=== PATIENT | female | born 1940 | race Caucasian/White ===

== ENCOUNTER 2021-01-22 09:15 | Outpatient (CLI) | payer MEDICARE, OTHER, SELFPAY ==
--- NOTE | ~2021-01-22 | DEXA_ITS ---
Bone Density Report Name: Mary Lou Youngblood Age: 80 Sex: Female Ethnicity: White Date of : 1940 Indication: osteopenia; height loss; prior fracture; cancer; Referring Provider: CELESTE, EMMA Nieto Study: Bone densitometry was performed. Exam Date: January 22, 2021 Accession number: [id number] Bone Density: Region BMD T-score Z-score Classification AP Spine (L1-L4) 0.927 -1.1 1.7 Osteopenia Femoral Neck (Left) 0.549 -2.7 -0.3 Osteoporosis Total Hip (Left) 0.764 -1.5 0.8 Osteopenia Total Hip Bilateral Avg 0.746 -1.7 0.6 Osteopenia Femoral Neck (Right) 0.579 -2.4 0.0 Osteopenia Total Hip (Right) 0.726 -1.8 0.4 Osteopenia World Health Organization criteria for BMD impression classify patients as: Normal (T-score at or above -1.0), Osteopenia (T-score between -1.0 and -2.5), or Osteoporosis (T-score at or below -2.5). 10-year Fracture Risk: FRAX not reported because: Some T-score for Spine Total or Hip Total or Femoral Neck at or below -2.5 Previous Exams: Region Exam Age BMD T-score BMD Change BMD Change Date g/cm2 vs Baseline vs Previous AP Spine(L1-L4) 01/22/2021 80 0.927 -1.1 0.082(9.7%)# 0.082(9.7%)# 05/16/2011 71 0.845 -1.8 Total Hip(Left) 01/22/2021 80 0.764 -1.5 0.015(2.0%)# 0.015(2.0%)# 05/16/2011 71 0.749 -1.6 Total Hip(Right) 01/22/2021 80 0.726 -1.8 -0.019(-2.5%)# -0.019(-2.5%)# 05/16/2011 71 0.745 -1.6 *Denotes significance at 95% confidence level, LSC for AP Spine = 0.022 g/cm2, LSC for Total Hip = 0.027 g/cm2 Clinical Information Provided by Patient: Has had a low trauma fracture Has the following medical conditions: Cancer Patient maximum height was 64.0 Menopause Age: 47 No regular weight bearing exercise Drinks caffeinated beverages Onset of menses at age 14 Number of children 3 Impression: The patient has established osteoporosis, based on the Left Femoral Neck T-score and the existence of a prior fracture. The patient has risk factors, including: previous fracture. No significant bone loss was observed. Discussion: HIGH RISK OF FRACTURE. BONE DENSITY IS UNDESIRABLY LOW AT ONE OR MORE SKELETAL SITES, CONSISTENT WITH POSTMENOPAUSAL OSTEOPOROSIS. This patient's lowest T-score, in a patient who has previously fractured, meets the World Health Organization's (WHO) criteria for severe osteoporosis. In untreated patients, the risk of osteoporotic fracture increases approximately two-fold for each 1.0 SD decrease
== END 2021-01-22 09:16 | disposition home or self-care (01) ==
PROVIDERS: PCP Internal Medicine; Visit Provider Internal Medicine
DX: Z78.0 Asymptomatic menopausal state (principal); M81.0 Age-related osteoporosis without current pathological fracture; M85.88 Other specified disorders of bone density and structure, other site; M85.852 Other specified disorders of bone density and structure, left thigh; M85.851 Other specified disorders of bone density and structure, right thigh
CPT/HCPCS: 77080

== ENCOUNTER 2021-08-08 16:39 | Emergency (ER) | payer MEDICARE, OTHER, SELFPAY ==
--- NOTE | ~2021-08-08 | CT_ITS ---
EXAMINATION: CT brain wo con, CT cervical spine wo con EXAM DATE: 08/08/2021 21:02 INDICATION: Fall, head injury. Headache. TECHNIQUE: Spiral CT of the head was performed without contrast. Axial, coronal and sagittal images were reviewed. Spiral CT of the cervical spine was performed without contrast. Axial images were rev iewed. Coronal and sagittal reformatted images were also reviewed. The dose-length product (DLP) fo r this examination was 605.33 (accession [id number]), 417.23 (accession [id number]) mGy-cm. The exposure was tailored according to patient size, and iterative reconstruction (ASIR) was used as additional dose reduction technique. There is no prior study for comparison. FINDINGS: HEAD CT: There is no acute intraparenchymal hemorrhage. No evidence of intraparenchymal brain mass l esion. No evidence of acute infarction. There is mild to moderate periventricular and subcortical hy podensity, nonspecific but probably related to small vessel ischemic disease. There is moderate pro minence of the sulci and ventricles related to cerebral atrophy. There is no mass effect or midlin e shift. There is no obstructive hydrocephalus suspected. There are no extra-axial collections. The re are no acute calvarial fractures. The orbits are unremarkable. Probable left frontal scalp contu reva, laceration. The visualized sinuses and mastoid air cells are well aerated. CERVICAL CT: Osseous fusion of the C5-7 vertebral bodies and partially fused facet joints. There is m oderate to severe disc disease at C4-5, moderate at C3-4. There is no evidence of acute cervical frac ture. The odontoid process is intact. Pre-dens space is normal. Prevertebral soft tissue is normal . There are no soft tissue abnormalities identified. There is no disc space widening or traumatic v ertebral body subluxation suspected. A detailed level by level evaluation of spondylosis can be adde d as addendum if requested. IMPRESSION: 1. No acute intracranial findings or cervical fracture. 2. Probable left frontal scalp contusion, laceration. 3. Age-related intracranial findings. 4. Cervical spondylosis. Reviewed, dictated and finalized at location A. R BUSINESS DEVELOPER IMPRESSION: 1. No acute intracranial findings or cervical fracture. 2. Probable left frontal scalp contusion, laceration. 3. Age-related intracranial findings. 4. Cervical spondylosis.
[2021-08-08 16:40] VITALS: BP 172/89; PULSE 84; RESP 18; TEMP 36.2; O2SAT 100
--- NOTE | 2021-08-08 19:19 | PC.NURSE ---
Assumed care of pt at this time. Pt alert and upright on stretcher. Pt and family updated on POC.
[2021-08-08 20:21] VITALS: BP 190/95; PULSE 68; RESP 25; TEMP 36.2; O2SAT 100
--- NOTE | 2021-08-08 20:47 | PC.NURSE ---
Pt to Ct via stretcher at this time. Pt alert and upright on stretcher during transport out of ED.
[2021-08-08 21:04] VITALS: BP 178/105
--- NOTE | 2021-08-08 21:50 | ED.FALL ---
HPI - Fall General Chief Complaint: Fall Stated Complaint: fall Time Seen by Provider: 08/08/21 18:28 Source: patient and family Mode of arrival: ambulatory Limitations: no limitations History of Present Illness HPI Narrative: 81-year-old female Here because of a fall with a scalp laceration Patient was walking from her garage into the kitchen like she is done 100s of times before and stumbled over the threshold and fell striking the left frontal area of her scalp She has a small laceration There were no antecedent symptoms She does not have a headache or any neurologic symptoms, she did not lose consciousness, she is not complaining of neck pain, and she is not taking a blood thinner, however she is 81 years old She believes that her tetanus is up-to-date and would rather check with her primary care doctor on this versus getting a Boostrix while she is here Related Data Allergies Allergy/AdvReac Type Severity Reaction Status Date / Time naproxen Allergy Mild Hives / Verified 08/08/21 18:45 Red Face Review of Systems Review of Systems: All systems reviewed & are unremarkable except as noted in HPI and below Constitutional: Constitutional: Reports no additional constitutional complaints, Denies chills, Denies fever(s) and Denies headache(s) Eyes: Eyes: Reports no additional eye complaints and Denies change in vision ENT: Denies headache(s) Cardiovascular: Cardiovascular: Denies chest pain, Denies radiating jaw, neck or arm pain and Denies dyspnea Respiratory: Respiratory: Denies cough and Denies dyspnea Gastrointestinal: Gastrointestinal: Denies nausea and Denies vomiting Genitourinary: Genitourinary: Denies urinary frequency Musculoskeletal: Musculoskeletal: Reports back pain, Reports myalgias, Denies deformity, Denies arthralgias, Denies joint swelling and Denies numbness Integumentary/Breasts: Skin/Breast: Denies rash and Denies wounds Neurologic: Denies vertigo, Denies dizziness, Denies syncope, Denies headache(s), Denies focal weakness and Denies numbness Psychiatric: Psychiatric: Reports no additional psychiatric complaints Endocrine: Endocrine: Reports no additional endocrine complaints Hematologic/Lymphatic: Hematologic/Lymphatic: Reports no additional hematologic/lymphatic complaints Allergic/Immunologic: Allergic/Immunologic: Reports no additional allergic/immunologic complaints Exam Const: General: no acute distress and alert Orientation/consciousness: patient oriented x3 HENMT: Head: hematoma and laceration Other: 2 cm lack to subcu left frontal scalp Eyes: Pupils: Equal, round and reactive pupils present Neck: Other: Nontender Resp: Auscultation: clear to auscultation bilaterally Cardio: Rate: regular rate Rhythm: regular rhythm Skin: General skin exam: normal color Neuro: General: patient oriented x3, moves all extremities and no focal motor deficits Speech: normal speech Gait exam (Neuro): Normal gait present Course Course Emergency Course: CT is negative Laceration glued She wants to follow-up with her primary on the tetanus and blood pressure Vital Signs Vital signs: Vital Signs Temperature 36.2 C L 08/08/21 16:40 Pulse Rate 84 08/08/21 16:40 Respiratory Rate 18 08/08/21 16:40 Blood Pressure 172/89 H 08/08/21 16:40 Pulse Oximetry 100 08/08/21 16:40 Temperature 36.2 C L 08/08/21 20:21 Pulse Rate 68 08/08/21 20:21 Respiratory Rate 25 H 08/08/21 20:21 Blood Pressure 178/105 H 08/08/21 21:04 Pulse Oximetry 100 08/08/21 20:21 Procedures Laceration Laceration 1: Date: 08/08/21 Time: 21:30 Site: scalp Size (cm): 2 Description: linear Depth: simple, single layer Pre-repair: irrigated ====== Skin Level ====== Skin layer closed with: dermabond ====== Subcutaneous Layer ====== ====== Muscle Layer ====== ====== Tendon Layer ====== MDM - Fall
[2021-08-08 22:15] VITALS: BP 126/65; PULSE 70; RESP 18; O2SAT 100
== END 2021-08-08 22:15 | disposition home or self-care (01) ==
PROVIDERS: Emergency Provider Emergency Medicine; PCP Internal Medicine
DX: S01.01XA Laceration without foreign body of scalp, initial encounter (principal); I10 Essential (primary) hypertension; W01.0XXA Fall on same level from slipping, tripping and stumbling without subsequent striking against object, initial encounter
CPT/HCPCS: 12001; 70450; 72125; 99284

== ENCOUNTER 2025-04-14 15:19 | Emergency (ER) | payer MEDICARE, SELFPAY ==
--- NOTE | ~2025-04-14 | CT_ITS ---
EXAMINATION: CT brain wo con DATE: 04/14/2025 16:26 INDICATION: trauma . TECHNIQUE: Computed tomography (CT) of the head was performed without intravenous contrast. The mA wa s adjusted according to patient size. Iterative reconstruction technique was employed. The dose-lengt h product was 605.33 mGy-cm. COMPARISON: 08/08/2021. FINDINGS: No acute intracranial hemorrhage or extra-axial fluid collection. No hydrocephalus, mass, or herniation. No acute ischemic infarct. Unremarkable dural venous sinus attenuation. No acute osseous abnormality. The aerated spaces are clear. Moderate atrophy and chronic white matter change. Atherosclerotic intracranial calcification. Bilater al lens replacements. Bilateral basal ganglia calcification. IMPRESSION: No acute intracranial process. Reviewed, dictated and finalized at location K.
--- NOTE | ~2025-04-14 | XR_ITS ---
EXAMINATION: XR chest 1V portable Exam Date/Time: 04/14/2025 18:47 CDT HISTORY: SOB Comparison: 06/14/2018; CTPA cervical spine 04/14/2025. RESULT: Lines, tubes, and devices: None. Lungs and pleura: No focal consolidation, pleural effusion, or pneumothorax. 1.2 cm ovoid opacity ov er the medial right upper lung, in comparison to the prior CT C-spine, this likely represents summati on artifact and tortuous vessels. Cardiomediastinal silhouette: Stable. Other: No acute osseous or upper abdominal finding. IMPRESSION: No acute cardiopulmonary process. Reviewed, dictated and finalized at location K.
--- NOTE | ~2025-04-14 | CT_ITS ---
EXAMINATION: CT facial & cervical spine wo DATE: 04/14/2025 16:26 INDICATION: trauma TECHNIQUE: Computed tomography (CT) of the maxillofacial region and cervical spine was performed with out intravenous contrast. Automated exposure control and iterative reconstruction technique were empl oyed. The dose-length product was 513.87 mGy-cm. COMPARISON: None FINDINGS: CERVICAL: Vertebral Body Alignment: Intact. Craniocervical and atlantoaxial alignment: Moderate degenerative change. Alignment intact. Osseous structures/fracture: No evidence of a lytic or blastic process in the visualized spine. No e vidence of acute fracture. C4-C7 vertebral body fusions. Multilevel facet fusions. Cervical soft tissues: The paraspinal soft tissues planes are maintained. 1.9 cm right thyroid nodule . Motion artifact and septal thickening in the upper lungs. Atherosclerotic arch calcifications. Degenerative changes: Degenerative changes, without severe neural foraminal or central canal narrowin g. FACE: Soft Tissues: No significant superficial soft tissue swelling. Facial bones: No acute fracture. No lytic or blastic process. Eyes: The globes are intact. The soft tissue planes of the orbits are maintained. Paranasal Sinuses: The visualized aerated spaces are clear. Foreign Bodies: No radiopaque foreign bodies. Other Findings: Uncomplicated appearing mandibular dental implants. IMPRESSION: No acute fracture or traumatic malalignment in the cervical spine. No acute facial bone fracture. 1.9 cm right thyroid nodule, consider outpatient thyroid ultrasound depending on comorbidities and pa tient wishes. Mild interstitial pulmonary edema. Reviewed, dictated and finalized at location K. IMPRESSION: No acute fracture or traumatic malalignment in the cervical spine. No acute fac ial bone fracture. 1.9 cm right thyroid nodule, consider outpatient thyroid ultrasound depending o n comorbidities and patient wishes. Mild interstitial pulmonary edema.
[2025-04-14 15:46] VITALS: BP 124/37; PULSE 81; RESP 33; TEMP 39.3; O2SAT 94
--- NOTE | 2025-04-14 15:52 | PC.NURSE ---
pt core temperature per rectal thermometer- 102.8. icepacks put in place in groin, axillary, and under breasts
[2025-04-14 16:55] LABS: Hematocrit 31.4 % (37.0-47.0); Hemoglobin 10.1 g/dL (12.0-15.0); Immature Granulocyte Percent A 1.1 % (0-0.5); Lymphocytes Absolute Auto 0.88 K/mm3 (0.9-3.2); Mean Corpuscular HGB Conc 32.2 g/dl (32-36); Mean Corpuscular Hemoglobin 28.4 pg (26-34); Mean Corpuscular Volume 88.2 fl (80-100); Nucleated Red Blood Cells Absolute Auto 0.020 K/mm3 (0.0-0.012); Nucleated Red Blood Cells Perc 0.2 % (0.0-0.2); Platelet Count Result 290 k/mm3 (150-375); Red Blood Count 3.56 M/mm3 (4.2-5.4); White Blood Count 9.4 K/mm3 (4.5-10.0)
[2025-04-14 17:14] LABS: INR 1.3; Prothrombin Time 15.8 Seconds (11.1-14.7)
[2025-04-14 17:15] LABS: Partial Thromboplastin Time 39.0 Seconds (22.3-36.8)
[2025-04-14 17:20] LABS: Alanine Aminotransferase 24 U/L (6-35); Albumin Level 3.3 g/dL (3.5-5.1); Alkaline Phosphatase 107 U/L (38-126); Anion Gap 9 mmol/L (4-12); Aspartate Amino Transferase 27 U/L (14-36); Bilirubin,Total 0.5 mg/dL (0.2-1.3); Blood Urea Nitrogen 53 mg/dL (7-17); Calcium 8.2 mg/dL (8.4-10.2); Carbon Dioxide 17 mmol/L (22-30); Chloride 111 mmol/L (98-107); Creatine Kinase 33 U/L (30-135); Estimated Glomerular Filt Rate 21; Glucose 122 mg/dL (65-110); Lipase 50 U/L (23-300); Potassium 5.0 mmol/L (3.4-5.0); Sodium 137 mmol/L (137-145); Total Protein 6.2 g/dL (6.3-8.2)
[2025-04-14] MEDS: ACETAMINOPHEN 500 MG TABLET 1000 MG PO (17:41)
--- NOTE | 2025-04-14 17:41 | PC.NURSE ---
C- Collar removed at this time per verbal order from Dr. Fuller post CT scan. Patient declined straight cath and is currently in bathroom with hat to provide a urine sample. Patient ambulated appropriately with a steady gait
--- NOTE | 2025-04-14 17:41 | ED.GENADULT ---
HPI - General Adult General Chief complaint: Fall Stated complaint: fall Time Seen by Provider: 04/14/25 15:54 History of Present Illness HPI narrative: 85-year-old female presenting to the emergency department for evaluation for having a ground level fall while she was in the urine. Patient reports she had been out doing some weeding in the ER for approximately 1 hour when she had a fall. Patient is currently on antibiotics for urinary tract infection. Patient is unsure what caused the fall. Patient was having some neck pain. Patient denies any other pain or injury. At time of evaluation patient was alert and appropriate. Related Data Allergies Allergy/AdvReac Type Severity Reaction Status Date / Time naproxen Allergy Mild Hives / Verified 08/08/21 18:45 Red Face Review of Systems Review of Systems: All systems reviewed & are unremarkable except as noted in HPI and below Exam Narrative: APPEARANCE: Well appearing, no pain, no distress, well-nourished. HEAD: normocephalic, atraumatic. EYES: PERRLA/EOMI, conjunctivae clear. NOSE: Normal no drainage EARS:TMS clear with good light reflex. THROAT: Pharynx clear, no exudate. NECK: Supple. No adenopathy, no masses. RESPIRATORY: Airway patent, respirations nonlabored. Clear to auscultation bilaterally, no rales, rhonchi, wheezing. CARDIOVASCULAR: Regular rate and rhythm without murmurs rubs or gallops. ABDOMINAL: Soft, nontender, nondistended, normal bowel sounds MUSCULOSKELETAL: Moves all extremities. Strength/ROM intact, No edema, No calf tenderness. NEURO: Alert. Cranial nerves II through XII intact. Good gait. Good coordination SKIN: Warm, dry. Normal Color Course Vital Signs Vital signs: Vital Signs Temperature 102.8 F H 04/14/25 15:46 Pulse Rate 81 04/14/25 15:46 Respiratory Rate 33 H 04/14/25 15:46 Blood Pressure 124/37 L 04/14/25 15:46 Pulse Oximetry 94 04/14/25 15:46 Oxygen Delivery Nasal Cannula 04/14/25 15:46 Oxygen Flow Rate 5 04/14/25 15:46 Temperature 97.4 F L 04/14/25 21:15 Pulse Rate 85 04/14/25 21:15 Respiratory Rate 20 04/14/25 21:15 Blood Pressure 110/68 04/14/25 21:15 Pulse Oximetry 96 04/14/25 21:15 Oxygen Delivery Nasal Cannula 04/14/25 15:46 Oxygen Flow Rate 5 04/14/25 15:46 Medical Decision Making MDM Narrative Medical decision making narrative: 85-year-old female presents emergency department for evaluation after having a ground level fall while weeding. Patient states that she had been waiting for approximately 1 hour and became fatigued. Patient did have a significant urinary tract infection and patient was treated with IV antibiotics. Patient had negative head cervical spine and facial CT. Had a lengthy discussion with the patient on whether she felt she was strong enough to go home and patient will be staying with family members overnight. Patient family were all comfortable the plan for pain discharged home. All questions concerns were addressed. Patient family were educated on reasons to return to the emergency department. Differential Diagnosis Differential Diagnosis: Subdural hematoma, subarachnoid hemorrhage, cervical spine fracture, facial fracture, COVID, RSV influenza, UTI, pyelonephritis Vital Signs Vital Signs: Vital Signs Temperature 102.8 F H 04/14/25 15:46 Pulse Rate 81 04/14/25 15:46 Respiratory Rate 33 H 04/14/25 15:46 Blood Pressure 124/37 L 04/14/25 15:46 Pulse Oximetry 94 04/14/25 15:46 Oxygen Delivery Nasal Cannula 04/14/25 15:46 Oxygen Flow Rate 5 04/14/25 15:46 Temperature 97.4 F L 04/14/25 21:15 Pulse Rate 85 04/14/25 21:15 Respiratory Rate 20 04/14/25 21:15 Blood Pressure 110/68 04/14/25 21:15 Pulse Oximetry 96 04/14/25 21:15 Oxygen Delivery Nasal Cannula 04/14/25 15:46 Oxygen Flow Rate 5 04/14/25 15:46 Lab Data Lab results reviewed: Yes I reviewed the patient's lab results. 04/14/25 16:46 04/14/25 16:46 Labs: Lab Results 04/14/25 04/14/25 Range/Units 16:46 20:18 WBC 9.4 (4.5-10.0) K/mm3 RBC 3.56 L (4.2-5.4) M/mm3 Hgb 10.1 L (12.0-15.0) g/dL Hct 31.4 L (37.0-47.0) % MCV 88.2 (80-100) fl MCH 28.4 (26-34) pg MCHC 32.2 (32-36) g/dl RDW 15.9 H (11.5-14.5) % Plt Count 290 (150-375) k/mm3 MPV 9.8 (7.4-10.4) fl Immature Gran % (Auto) 1.1 H (0-0.5) % Neut % (Auto) 79.1 H (45.5-73.1) % Lymph % (Auto) 9.3 L (18.3-44.2) % [place]once % (Auto) 6.2 (2.6-8.5) % Eos % (Auto) 3.9 (0-4.4) % Baso % (Auto) 0.4 (0.2-1.2) % Lymph # (Auto) 0.88 L (0.9-3.2) K/mm3 [place] # (Auto) 0.6 (0.1-0.6) K/mm3 Eos # (Auto) 0.4 H (0-0.3) K/mm3 Baso # (Auto) 0.0 (0.0-0.1) K/mm3 Abs Immat Gran (auto) 0.10 H (0.00-0.031) K/mm3 Absolute Neuts (auto) 7.5 H (1.3-6.7) K/mm3 Absolute Nucleated RBC 0.020 H (0.0-0.012) K/mm3 Nucleated RBC % 0.2 (0.0-0.2) % PT 15.8 H (11.1-14.7) Seconds INR 1.3 APTT 39.0 H (22.3-36.8) Seconds Sodium 137 (137-145) mmol/L Potassium 5.0 (3.4-5.0) mmol/L Chloride 111 H (98-107) mmol/L Carbon Dioxide 17 L (22-30) mmol/L Anion Gap 9 (4-12) mmol/L BUN 53 H (7-17) mg/dL Creatinine 2.22 H (0.7-1.0) mg/dL Estim Creat Clear Calc Not Reportable Estimated GFR 21 L (59 - ) Glucose 122 H (65-110) mg/dL Lactic Acid 1.2 (0.7-2.0) mmol/L Calcium 8.2 L (8.4-10.2) mg/dL Total Bilirubin 0.5 (0.2-1.3) mg/dL AST 27 (14-36) U/L ALT 24 (6-35) U/L Alkaline Phosphatase 107 (38-126) U/L Total Creatine Kinase 33 (30-135) U/L Total Protein 6.2 L (6.3-8.2) g/dL Albumin 3.3 L (3.5-5.1) g/dL Lipase 50 (23-300) U/L Urine Color Dark yellow (Yellow) Urine Appearance Turbid H (Clear) Urine pH 5.5 (5.0-9.0) Ur Specific [place] 1.021 (1.001-1.035) Urine Protein 1+ H (Negative) mg/dL Urine Glucose (UA) Negative (Negative) mg/dL Urine Ketones Trace H (Negative) mg/dL Ur Blood (Man) Negative (Negative) Urine Nitrate Negative (Negative) Urine Bilirubin Negative (Negative) Urine Urobilinogen 0.2 (<2.0) mg/dL Leukocyte Esterase Rfl 2+ H (Negative) LUIS/UL Urine RBC 0-2 (0-2) /hpf Urine WBC 51-100 H (0-3) /hpf Ur Squamous Epith Cells Few (Few) /hpf Uric Acid Crystals Present H (None) /hpf Urine Bacteria None seen /hpf Urine Casts 11-20 Imaging Data Radiologist's impression: Impressions Chest X-Ray 04/14/25 19:05 IMPRESSION: No acute cardiopulmonary process. Discharge Plan Discharge Clinical Impression: Acute UTI Patient Disposition: Home Condition: Stable Instructions: Antibiotic Form, Urinary Tract Infection in Older Adults (ED) Additional Instructions: Antibiotics as directed until completed. Drink plenty of fluids. Rest over the next few days and avoid exposure to excessive heat. If you have any worsening symptoms then please call or return to the emergency department Patient Language: Marshallese Prescriptions: New cephalexin 500 mg capsule 500 mg PO Q8H 7 Days Qty: 21 0RF Follow-up/Referrals: South,Matt Nieto MD [Primary Care Provider] -
--- OUTSIDE RECORDS SUMMARY | 2025-04-14 18:06 | XMS_ITS | Encounter Summary ---
Author Organization [facility] Address [address] [place] [address] Care Team Providers Care Sewer Builder Name Role Phone Matt Dia MD Primary Care Provider [phone] Matt Dia MD Unavailable [phone] Encounter Details Date Type Department Care Team (Latest Contact Info) Description 05/27/2018 Abstract [facility] Saul Mckinney MD Social History Tobacco Use Types Packs/Day Years Used Date Smoking Tobacco: Never Assessed Comments Unknown Sex and Gender Information Value Date Recorded Sex Assigned at Female 10/13/2018 8:23 AM ALL TERRAIN VEHICLE TECHNICIAN Legal Sex Female 5:55 PM CDT Gender Identity Female 10/13/2018 8:23 AM ALL TERRAIN VEHICLE TECHNICIAN Sexual Orientation Straight 10/13/2018 8: 23 AM ALL TERRAIN VEHICLE TECHNICIAN documented as of this encounter Plan of Treatment Upcoming Encounters Date Type Department Care Team (Late st Contact Info) Description 10/09/2025 9:40 AM ALL TERRAIN VEHICLE TECHNICIAN Office Visit [facility] Family & Internal Medicine [id number] [place] [address] Matt Dia MD [facility] [place] [address] documented as of this encounter Visit Diagnoses Not on filedocumented in this encounter Care Teams Sewer Builder Relationship Specialty Start Date End Date Matt Dia MD [address] [place] [address] PCP - General 01/02/17 Matt Dia MD [address] [place] [id number] PCP - [facility] Attributed Provider 06/28/17 09/27/21 documented as of this encounter
--- OUTSIDE RECORDS SUMMARY | 2025-04-14 18:06 | XMS_ITS | Encounter Summary ---
Author Organization [facility] Address [address] [place] [id number] Care Team Providers Care Finish Repair Worker Name Role Phone Matt Dia MD Primary Care Provider [phone] Matt Dia MD Unavailable [phone] Encounter Details Date Type Department Care Team (Latest Contact Info) Description 08/03/2018 Abstract [facility] Saul Mckinney MD Social History Tobacco Use Types Packs/Day Years Used Date Smoking Tobacco: Never Assessed Comments Unknown Sex and Gender Information Value Date Recorded Sex Assigned at Female 10/13/2018 8:23 AM DIGITAL COMPOSER Legal Sex Female 5:55 PM CDT Gender Identity Female 10/13/2018 8:23 AM DIGITAL COMPOSER Sexual Orientation Straight 10/13/2018 8: 23 AM DIGITAL COMPOSER documented as of this encounter Plan of Treatment Upcoming Encounters Date Type Department Care Team (Late st Contact Info) Description 10/09/2025 9:40 AM DIGITAL COMPOSER Office Visit [facility] Family & Internal Medicine [id number] [place] [address] [facility] [place] [address] documented as of this encounter Visit Diagnoses Not on filedocumented in this encounter Care Teams Finish Repair Worker Relationship Specialty Start Date End Date Matt Dia MD [address] [place] [address] PCP - General 01/02/17 Matt Dia MD [address] [place] [address] PCP - [facility] Attributed Provider 06/28/17 09/27/21 documented as of this encounter
--- OUTSIDE RECORDS SUMMARY | 2025-04-14 18:06 | XMS_ITS | Clinical Summary ---
Author Organization [facility] Address [address] [place] [address] Care Team Providers Care Unit Tender Name Role Phone Matt Dia MD Primary Care Provider [phone] Allergies Active Allergy Reactions Criticality Noted Date Comments Naproxen Hives 05/17/2015 Pregabalin Dizziness 12/10/2016 Medications furosemide (LASIX) 20 MG tabletIndications: Benign essential hypertension take 1 tablet by mouth daily 90 tablet 3 01/18/20 24 Active traMADol (ULTRAM) 50 MG tabletIndications: Acute Pain < 7 Day Supply,Chronic Pain Indications: Acute Pain < 7 Day Supply, Chronic Pain Take one tablet by mouth every 6-8 hours as needed for pain. 60 tablet 02/03/20 24 Active amLODIPine (NORVASC) 2.5 MG tabletIndications: Benign essential hypertension take 1 tablet by mouth daily 90 tablet 3 05/09/20 24 Active allopurinol (ZYLOPRIM) 300 MG tabletIndications: Benign essential hypertension TAKE 1 TABLET BY MOUTH DAILY 90 tablet 3 08/08/20 24 Active metFORMIN (GLUCOPHAGE) 500 MG tabletIndications: Type 2 diabetes mellitus without complication, without long-term current use of insulin ([facility]) TAKE 1 TABLET BY MOUTH TWICE DAILY WITH MEALS 180 tablet 3 08/11/20 24 Active omeprazole (PRILOSEC) 40 MG capsuleIndications :Gastroesophageal reflux disease TAKE 1 CAPSULE BY MOUTH DAILY 90 capsule 3 08/23/20 24 Active losartan (COZAAR) 100 MG tabletIndications: Benign essential hypertension TAKE 1 TABLET BY MOUTH DAILY 90 tablet 3 10/17/19 25 Active atorvastatin (LIPITOR) 10 MG tabletIndications: Mixed hyperlipidemia TAKE 1 TABLET BY MOUTH AT NIGHT AT BEDTIME 90 tablet 01/21/20 25 Active metoprolol succinate ER (TOPROL-XL) 200 MG 24 hr tabletIndications: Benign essential hypertension TAKE 1 TABLET BY MOUTH DAILY 90 tablet 03/02/20 25 Active triamcinolone (KENALOG) 0.1 % cream Apply topically daily as needed (rash on B/L legs). 03/10/20 25 Active triamcinolone (KENALOG) 0.1 % creamIndications:E czema, unspecified type Apply topically 2 (two) times daily. 80 g 3 04/05/20 25 Active sulfamethoxazole-t rimethoprim (BACTRIM DS) 800-160 MG tabletIndications: Dysuria Take 1 tablet by mouth 2 (two) times daily for 7 days. 14 tablet 04/10/20 25 025 Active azithromycin (ZITHROMAX) 250 MG tabletIndications: Upper respiratory tract infection, unspecified type Take 2 tabs daily for one day, then take 1 tab daily 6 tablet 11/30/19 25 025 Discontinu ed(Therapy completed) fluconazole (DIFLUCAN) 150 MG tabletIndications: Vaginal yeast infection Take 1 tablet (150 mg total) by mouth once for 1 dose. 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) 03/24 Type I CRPS (complex regional pain syndrome) Unsteady gait 05/22/2016 Hypertension associated with type 2 diabetes mellitus ([facility]) 05/17/2015 Gastroesophageal reflux disease 05/17/2015 Gout 05/17/2015 Hyperlipidemia due to type 2 diabetes mellitus ([facility]) 05/17/2015 Osteoarthritis of knee 05/17/2015 Resolved Problems Problem Noted Date Diagnosed Date Resolved Date Chronic kidney disease, stage III (moderate) 07/15/2023 Hypertension 01/13/2022 01/13/2022 Metatarsal fracture 04/27/2018 09/12/20 Serum creatinine raised 10/02/201606/28 Encounters Date Type Department Care Team Description 04/10/2025 Telephone [facility] Family Internal [address] [address] Matt Dia MD Medication Request 04/10/2025 MyChart Message Enc [facility] Internal [address] [address] Matt Dia MD uti 04/08/2025 Telephone [facility] Internal [address] [address] Matt Dia MD Advice (Nurse Triage - After Hours ([id number])/) 04/05/2025 8:00 AM CDT Office Visit [facility] Internal [address] [address] Matt Dia MD Follow Up; GERD; Peripheral Vascular Disease; Diabetes; CHF; Obstructive Sleep Apnea ; Hypertension; Hyperlipidemia; Chronic Kidney Disease; Other (CRPS & back pain - prescribed Tramadol); Vaginal Problem (Patient c/o of vaginal yeast infection x 2 weeks. She is requesting medication to tx. ); Itching (Patient c/o RT hand itching. ) 04/05/2025 Travel 04/02/2025 Results Follow-Up [facility] Family & Internal Medicine [address] [address] Matt Dia MD URINALYSIS, CK (CPK), ALBUMIN URINE RANDOM W/CREATININE, Additional followed-up results: 6 2025 8:20 AM CDT Laboratory Only [facility] Family Internal [address] [address] Matt Dia MD 2025 - 2025 11:59 PM CDT Hospital Encounter [facility] [place] [address] Matt Dia MD Discharge Disposition: Home or Self Care (Routine Discharge) 2025 Travel from Last 3 Months Immunizations Immunization Administration Dates Next Due Arexvy Respiratory Syncytial Virus (RSV, adjuvanted) 0.5 mL, PF 04/14/2024 Fluzone High Dose (IIV, triv alent, 0.5mL) 08/10/2024 Fluzone High Dose - >Age 65 (Prefilled Syringe) 07/15/2023,07/15/2022,07/15/2021,2019 Influenza (Generic) 07/12/2015 Influenza Adult (Generic) 07/15/2022,,06/20/2019,2017,06/21/2016 MODERNA COVID-19 (12+) MRNA, LNP-S, PF, 100 MCG/ 0.5 ML DOSE 11/22/2020,10/25/2020 MODERNA COVID-19 (PSYCHOLOGY TECHNICIAN GAGAN GEORGE), MRNA, LNP-S, PF, 50 MCG/ 0.25 ML DOSE 08/15/2021 Pneumococcal (Pneumovax 23) 09/12/2019 Pneumococcal (Prevnar 13) 03/12/2017 Tdap (Boostrix) 09/08/2017 Zoster (Zostavax) [address] Unt/0.65Ml 08/11/2016 Family History Medical History Relation Comments Parkinson's Disease Brother Diabetes Father Kidney Cancer Father Parkinson's Disease Father Parkinson's Disease Mother Arthritis Sister Asthma Sister COPD Sister Heart Disease Sister Hypertension Sister Stroke Sister Relation Status Comments Brother Father Mother Sister Social History Tobacco Use Types Packs/Day Years Used Date Smoking Tobacco: Former Cigarettes 0.5 32 0 09/28/1957 - 09/28/1989 Smokeless Tobacco: Never Tobacco Cessation:Counseling Given: Yes Comments:na Alcohol Use Standard Drinks/Week Comments Not Currently 1.7 (1 standard drin k = 0.6 oz pure alcohol) 1 glass of wine 1-2 times a month AUDIT-C Answer Date Recorded Frequency of Alcohol Consumption 2-3 times a wee k 03/21/2019 Average Number of Drinks 1 or 2 019 Frequency of Binge Drinking Never 02/27 PHQ-2 Answer Date Recorded Patient Health Questionnaire-2 Score 0 10/06/2024 Comments No Sex and Gender Information Value Date Recorded Sex Assigned at Female 10/13/2018 8:23 AM HEALTH AIDE Legal Sex Female 5:55 PM CDT Gender Identity Female 10/13/2018 8:23 AM HEALTH AIDE Sexual Orientation Straight 10/13/2018 8: 23 AM HEALTH AIDE Last Filed Vital Signs Vital Sign Reading Time Taken Comments Blood Pressure 132/78 04/05/2025 9:11 AM CDT Pulse 65 04/05/2025 8:28 AM CDT Temperature 36.9 C (98.4 F) 04/05/2025 8:28 AM CDT Respiratory Rate 20 04/05/2025 8:28 AM CDT Oxygen Saturation 96% 04/05/2025 8:28 AM CDT Inhaled Oxygen Concentration - - Weight 101.3 kg (223 lb 4.8 oz) 04/05/2025 8:28 AM CDT Height 162.6 cm (5' 4) 04/05/2025 8:28 AM CDT Body Mass Index 38.33 04/05/2025 8:28 AM CDT Plan of Treatment Upcoming Encounters Date Type Department Care Team (Late st Contact Info) Description 10/09/2025 9:40 AM HEALTH AIDE Office Visit [facility] Family & Internal Medicine [address] [place] [address] Matt Dia MD [address] [place] [address] Health Maintenance Due Date Last Done Comments Annual Medicare Wellness Visit 2003 COVID-19 Vaccine (5 - Moderna risk season) 2025 08/10/2024, 08/15/2021, 11/22/2020, Additional history exists Diabetes: Retinopathy Eye Exam 05/06/2025 Postponed from 1956 (Awaiting Documentation) Hemoglobin A1C 09/30/2025 2025, 04/2025, 01/07/2024, Additional history exists Lipid Panel 2026 2025, 04/2025, 01/07/2024, Additional history exists Zoster Vaccines (2 of 3) 04/05/2026 08/11/2016 Pos tponed from 10/06/2016 (Going to Outside Clinic) DTaP, Tdap and Td Vaccines (2 - Td or Tdap) 09/08/2027 09/08/2017 Pneumococcal Vaccine: 50+ Years Completed 09/12/2019, 03/12/2017 RSV Immunization or 60+ Years Completed 04/14/2024 PHQ-2 (Physician [place]) Completed 10/06/2024 Meningococcal B Vaccine Aged Out No l onger eligible based on patient's age to complete this topic Meningococcal Vaccine Aged Out No simran niki eligible based on patient's age to complete this topic RSV Immunizations Under 20 Months Aged Out No longer eligible based on patient's age to complete this topic Procedures Procedure Name Priority Date/Time Associated Diagnosis Comments COLLECTION VENOUS BLOOD VENIPUNCTURE Routine 2025 8:43 AM CDT Gastroesophageal reflux disease without esophagitis Type 2 diabetes mellitus with diabetic polyneuropathy, without long-term current use of insulin ([facility]) CBC W/DIFF AUTOMATED Routine 2025 8:43 AM CDT Gastroesophageal reflux disease without esophagitis Type 2 diabetes mellitus with diabetic polyneuropathy, without long-term current use of insulin ([facility]) LIPID PANEL Routine 2025 8:43 AM CDT Gastroesophageal reflux disease without esophagitis Type 2 diabetes mellitus with diabetic polyneuropathy, without long-term current use of insulin ([facility]) TSH W/REFLEX Routine 2025 8:43 AM CDT Gastroesophageal reflux disease without esophagitis Type 2 diabetes mellitus with diabetic polyneuropathy, without long-term current use of insulin ([facility]) URIC ACID BLOOD Routine 2025 8:43 AM CDT Gastroesophageal reflux disease without esophagitis Type 2 diabetes mellitus with diabetic polyneuropathy, without long-term current use of insulin ([facility]) HEMOGLOBIN, GLYCOSYLATED Routine 2025 8:43 AM CDT Gastroesophageal reflux disease without esophagitis Type 2 diabetes mellitus with diabetic polyneuropathy, without long-term current use of insulin ([facility]) COMPREHENSIVE METABOLIC PANEL Routine 2025 8:43 AM CDT Gastroesophageal reflux disease without esophagitis Type 2 diabetes mellitus with diabetic polyneuropathy, without long-term current use of insulin ([facility]) ALBUMIN URINE RANDOM W/CREATININE Routine 2025 8:43 AM CDT Gastroesophageal reflux disease without esophagitis Type 2 diabetes mellitus with diabetic polyneuropathy, without long-term current use of insulin ([facility]) CK (CPK) Routine 2025 8:43 AM CDT Gastroesophageal reflux disease without esophagitis Type 2 diabetes mellitus with diabetic polyneuropathy, without long-term current use of insulin ([facility]) URINALYSIS, AUTO, COMPLETE Routine 2025 8:43 AM CDT Gastroesophageal reflux disease without esophagitis Type 2 diabetes mellitus with diabetic polyneuropathy, without long-term current use of insulin ([facility]) from Last 3 Months Results * TSH W/REFLEX (2025 8:43 AM CDT) TSH 3.045 0.358 - 3.740 uIU/ML 2025 4:35 PM CDT [facility] 2025 8:43 AM CDT us Matt Dia MD LABORATORY Final Result Performing Organization Address [facility] Co de Phone Number [facility] [address] [place] [address], [place] [phone] * (ABNORMAL) HEMOGLOBIN, GLYCOSYLATED (2025 8:43 AM CDT) HGB A1C 7.1(H) 4.5 - 6.2 % 2025 5:26 PM CDT [facility] ESTIMATED AVG GLUCOSE 157(H) 74 - 106 MG/DL 2025 5:26 PM CDT [facility] 2025 8:43 AM CDT us Matt Dia MD LABORATORY Final Result Performing Organization Address [facility] Co de Phone Number [address] [address], [place] [phone] * (ABNORMAL) URINALYSIS (2025 8:43 AM CDT) COLOR (U) YELLOW 2025 4:26 PM CDT [facility] TRANSPARENCY HAZY(A) CLEAR 2025 4:26 PM CDT [facility] SPECIFIC GRAVITY (U) >1.030 1.003 - 1.040 2025 4:26 PM CDT [facility] U PH 5.5 5.0 - 9.0 2025 4:26 PM CDT [facility] PROTEIN RANDOM (U) 1+(A) NEGATIVE 2025 4:26 PM CDT [facility] GLUCOSE (U) NEGATIVE NEGATIVE 2025 4:26 PM CDT [facility] KETONES MG/DL (U) NEGATIVE NEGATIVE 2025 4:26 PM CDT [facility] BILIRUBIN (U) NEGATIVE NEGATIVE 2025 4:26 PM CDT [facility] BLOOD (U) NEGATIVE NEGATIVE 2025 4:26 PM CDT [facility] UROBILINOGEN 0.2 0.0 - 2.0 EU/DL 2025 4:26 PM CDT [facility] NITRITES NEGATIVE NEGATIVE 2025 4:26 PM CDT [facility] LEUKOCYTES (U) NEGATIVE NEGATIVE 2025 4:26 PM CDT [facility] RBC/HPF 0-3 0 - 3 /HPF 2025 4:26 PM CDT [facility] WBC/HPF 4-9(A) 0 - 3 /HPF 2025 4:26 PM CDT [facility] EPI/HPF 4-9 /HPF 2025 4:26 PM CDT [facility] BACTERIA (U) 4+(A) NONE SEEN 2025 4:26 PM CDT [facility] NON SQUAMOUS EPITHELIAL 0-3 /HPF 2025 4:26 PM CDT [facility] COMMENT (U) YEAST 2025 4:26 PM CDT [facility] Comment:PRESENT URINE SPECIMEN OBTAINED BY CLEAN CATCH PROCEDURE / Unknown 2025 8:43 AM CDT us Matt Dia MD URINE ORDERABLES Final Result [facility] [address] [place] [address], * (ABNORMAL) ALBUMIN URINE RANDOM W/CREATININE (2025 8:43 AM CDT) [facility] MICROALBUMIN (U) 151.8(H) <20 MG/L 03/30/20 5:11 PM CDT [facility] CREATININE RANDOM (U) 159.1 MG/DL 2025 5:11 PM CDT [facility] ALBUMIN/CREAT RATIO 95.4(H) <30 MG/G 2025 5:11 PM CDT [facility] URINE SPECIMEN / Unknown 2025 8:43 AM CDT Matt Dia MD URINE ORDERABLES Final Result [id number] [place] [address], * (ABNORMAL) COMPREHENSIVE METABOLIC PANEL (2025 8:43 AM CDT) [facility] SODIUM S/P/B 139 136 - 145 MMOL/L 2025 4:35 PM CDT [facility] POTASSIUM S/P/B 5.2(H) 3.5 - 5.1 MMOL/L 2025 4:35 PM CDT [facility] CHLORIDE S/P/B 102 98 - 107 MMOL/L 2025 4:35 PM CDT [facility] CO2 29.5 21 - 32 MMOL/L 2025 4:35 PM CDT [facility] GLUCOSE 113(H) 70 - 99 MG/DL 2025 4:35 PM CDT [facility] BUN 26(H) 7 - 18 MG/DL 2025 4:35 PM CDT [facility] CREATININE S/P/B 1.30(H) 0.55 - 1.02 MG/DL 2025 4:35 PM CDT [facility] CALCIUM S/[facility]/B 8.9 8.4 - 10.5 MG/DL 2025 4:35 PM CDT [facility] BILIRUBIN TOTAL S/P/B 0.5 0.2 - 1.0 MG/DL 2025 4:35 PM CDT [facility] ALKALINE PHOSPHATASE S/P/B 102 55 - 142 U/L 2025 4:35 PM CDT [facility] AST 16 15 - 37 U/L 2025 4:35 PM CDT [facility] ALT 21 14 - 59 U/L 2025 4:35 PM T [facility] TOTAL PROTEIN S/P/B 7.0 6.4 - 8.2 G/DL 2025 4:35 PM T [facility] ALBUMIN S/P/B 3.7 3.4 - 5.0 G/DL 2025 4:35 PM T [facility] ANION GAP 7.5 5 - 15 MMOL/L 2025 4:35 PM T [facility] Comment:REFERENCE RANGE NOT ESTABLISHED OSMOLALITY (CALC) 294 MOSM/KG 025 4:35 PM CDT [facility] Comment:REFERENCE RANGE NOT ESTABLISHED GFR ESTIMATE 40(L) >90 ML/MIN/1. 73 M2 2025 4:35 PM CDT [facility] GFR NOTES GFR REFERENCE S: 2025 4:35 PM T [facility] Comment: THE ESTIMATED GFR IS CALCULATED USING THE 2020 CKD-EPI EQUATION. THE FOLLOWING CATEGORIES FOR GRADING RENAL FUNCTION ARE RECOMMENDED BY THE INTERNATIONAL SOCIETY OF NEPHROLOGY (KDIGO 2012 CLINICAL PRACTICE GUIDELINE). G1,NORMAL OR HIGH: >89 ml/min/1.73 m2 G2,MILDLY DECREASED: 60-89 ml/min/1.73 m2 G3A,MILDLY TO MODERATELY DECREASED: 45-59 ml/min/1.73 m2 G3B,MODERATELY TO SEVERELY DECREASED: 30-44 ml/min/1.73 m2 G4,SEVERELY DECREASED: 15-29 ml/min/1.73 m2 G5,KIDNEY FAILURE: <15 ml/min/1.73 m2 2025 8:43 AM CDT Matt Dia MD LABORATORY Final Result [facility] [address] [place] [address], * (ABNORMAL) LIPID PANEL (2025 8:43 AM CDT) CHOLESTEROL 167 <200 MG/DL 2025 4:35 PM CDT [facility] TRIGLYCERIDES 195(H) <150 MG/DL 2025 4:35 PM CDT [facility] HDL 41 >40 MG/DL 2025 4:35 PM CDT [facility] LDL-C 87 <100 MG/DL 2025 4:35 PM CDT [facility] VLDL CALCULATION 39(H) 5 - 28 MG/DL 2025 4:35 PM CDT [facility] CHOL/HDL RATIO 4.1(H) 0.0 - 4.0 2025 4:35 PM CDT [facility] LDL/HDL 2.1 0.41 - 2.13 2025 4:35 PM CDT [facility] NON HDL CHOLESTEROL 126 <140 MG/DL 2025 4:35 PM CDT [facility] 2025 8:43 AM CDT us Matt Dia MD LABORATORY Final Result [facility] [address] [facility] [place] [address], [place] [phone] * (ABNORMAL) CBC W/DIFF AUTOMATED (2025 8:43 AM CDT) WBC 8.19 4.00 - 10.80 x10'3/uL 2025 3:30 PM CDT [facility] RBC 4.22 4.10 - 5.40 x10'6/uL 2025 3:30 PM CDT [facility] HGB 12.2 12.0 - 16.0 G/DL 2025 3:30 PM CDT [facility] HCT 39.0 36.0 - 47.0 % 2025 3:30 PM CDT [facility] MCV 92.4 78.0 - 100.0 FL 2025 3:30 PM CDT [facility] MCH 28.9 27.0 - 31.0 PG 2025 3:30 PM CDT [facility] MCHC 31.3(L) 33.0 - 36.0 G/DL 2025 3:30 PM CDT [facility] RDW 15.4(H) 11.5 - 14.5 % 2025 3:30 PM CDT [facility] PLT 311 150 - 350 x10'3/uL 2025 3:30 PM CDT [facility] MPV 10.3 7.4 - 10.4 FL 2025 3:30 PM CDT [facility] DIFFERENTIAL TYPE AUTOMATED DIFFERENTIAL 2025 3:30 PM CDT [facility] NEUTROPHILS % 61.0 % 2025 3:30 PM CDT -[facility] LYMPHOCYTES % 23.9 % 2025 3:30 PM CDT -[facility] MONOCYTES % 9.3 % 2025 3:30 PM CDT -[facility] EOSINOPHILS % 4.5 % 2025 3:30 PM CDT [facility] BASOPHILS % 0.4 % 2025 3:30 PM CDT -[facility] IMMATURE GRANS % 0.9 % 2025 3:30 PM CDT -[facility] ABS. NEUTROPHILS 5.00 1.60 - 8.30 x10'3/uL 2025 3:30 PM CDT -[facility] ABS. LYMPHOCYTES 1.96 0.80 - 4.70 x10'3/uL 2025 3:30 PM CDT -[facility] ABS. MONOCYTES 0.76 0.00 - 1.50 x10'3/uL 2025 3:30 PM CDT -[facility] ABS. EOSINOPHILS 0.37 0.00 - 0.40 x10'3/uL 2025 3:30 PM CDT [facility] ABS. BASOPHILS 0.03 0.00 - 0.20 x10'3/uL 2025 3:30 PM CDT [facility] ABS. IMMATURE GRANULOCYTES 0.07(H) 0.00 - 0.03 x10'3/uL 2025 3:30 PM CDT [facility] 2025 8:43 AM CDT us Matt Dia MD LABORATORY Final Result [facility] [address] [place] [address], [place] [phone] * CK (CPK) (2025 8:43 AM CDT) CPK 28 26 - 192 U/L 2025 9:39 PM CDT [facility] 2025 8:43 AM CDT Matt Dia MD LABORATORY Final Result [facility] [address] [place] [address], [place] [phone] [id number] * URIC ACID BLOOD (2025 8:43 AM CDT) URIC ACID 4.6 2.6 - 6.0 MG/DL 2025 5:25 PM CDT [facility] 2025 8:43 AM CDT Matt Dia MD LABORATORY Final Result Performing Organization Address City/[facility]/ZIP Co de Phone Number [facility] [address] [place] [address], [place] [phone] from Last 3 [place] [address] [place] [address] Care Teams Unit Tender Relationship Specialty Start Date End Date Matt Dia MD [address] [place] [address] PCP - General 01/02/17
--- OUTSIDE RECORDS SUMMARY | 2025-04-14 18:06 | XMS_ITS | Encounter Summary ---
Author Organization [facility] Address [address] [place] [address] Care Team Providers Care Special Education Coordinator Name Role Phone Matt Dia MD Primary Care Provider [phone] Encounter Details Date Type Department Care Team (Late st Contact Info) Description 12/17/2023 MyChart Message Enc [facility] Family & Internal Medicine [address] [address] Matt Dia MD [facility] [place], [place] [id number] Physical therapy. Social History Tobacco Use Types Packs/Day Years Used Date Smoking Tobacco: Former Cigarettes 0.5 32 0 09/28/1957 - 09/28/1989 Smokeless Tobacco: Never Comments:na Alcohol Use Standard Drinks/Week Comments Yes 1.7 (1 standard drin k = 0.6 oz pure alcohol) 1 glass of wine 1-2 times a week AUDIT-C Answer Date Recorded Frequency of Alcohol Consumption 2-3 times a wee k 03/21/2019 Average Number of Drinks 1 or 2 019 Frequency of Binge Drinking Never 02/27 PHQ-2 Answer Date Recorded Patient Health Questionnaire-2 Score 0 11/12/2023 Comments No Sex and Gender Information Value Date Recorded Sex Assigned at Female 10/13/2018 8:23 AM [employer] WORKER Legal Sex Female 5:55 PM CDT Gender Identity Female 10/13/2018 8:23 AM [employer] WORKER Sexual Orientation Straight 10/13/2018 8: 23 AM [employer] WORKER documented as of this encounter Plan of Treatment Upcoming Encounters Date Type Department Care Team (Late st Contact Info) Description 10/09/2025 9:40 AM FI[employer] WORKER Office Visit [facility] Family & Internal Medicine - [address] [address] Matt Dia MD [address] [place] [address] documented as of this encounter Visit Diagnoses Not on filedocumented in this encounter Additional Health Concerns Assessment Noted Time PHQ-9 Depression Total Score: 0 07/15/20 21 8:40 AM CDT documented as of this encounter Care Teams Special Education Coordinator Relationship Specialty Start Date End Date Matt Dia MD [address] [place] [address] PCP - General 01/02/17 documented as of this encounter
--- OUTSIDE RECORDS SUMMARY | 2025-04-14 18:06 | XMS_ITS | Encounter Summary ---
Author Organization [facility] Address [address] [place] [address] Care Team Providers Care Extractor Loader And Unloader Name Role Phone Matt Dia MD Primary Care Provider [phone] Encounter Details Date Type Department Care Team (Late st Contact Info) Description 04/02/2025 Results Follow-Up [facility] Family & Internal Medicine [address] [id number] [place] [address] Matt Dia MD [facility] [place] [address] URINALYSIS, CK (CPK), ALBUMIN URINE RANDOM W/CREATININE, Additional followed-up results: 6 Social History Tobacco Use Types Packs/Day Years Used Date Smoking Tobacco: Former Cigarettes 0.5 32 0 09/28/1957 - 09/28/1989 Smokeless Tobacco: Never Comments:na Alcohol Use Standard Drinks/Week Comments Not Currently 0 (1 standard drink = 0.6 oz pure alcohol) 1 glass [...] Sex Assigned at Female 10/13/2018 8:23 AM SALES RECORD CLERK Legal Sex Female 5:55 PM CDT Gender Identity Female 10/13/2018 8:23 AM SALES RECORD CLERK Sexual Orientation Straight 10/13/2018 8: 23 AM SALES RECORD CLERK documented as of this encounter Progress Notes * Matt Dia MD - 04/02/2025 4:22 PM CDT Labs review, will review with the patient at her next appointment. Future Appointments 04/05/2025 8:00 AM Matt Dia MD [id number] documented in this encounter Plan of Treatment Upcoming Encounters Date Type Department Care Team (Late st Contact Info) Description 10/09/2025 9:40 AM SALES RECORD CLERK Office Visit [facility] Family & Internal Medicine - [address] [id number] Matt Dia MD [address] [place] [id number] documented as of this encounter Visit Diagnoses Not on filedocumented in this encounter Additional Health Concerns Assessment Noted Time PHQ-9 Depression Total Score: 0 07/15/20 21 8:40 AM CDT documented as of this encounter Care Teams Extractor Loader And Unloader Relationship Specialty Start Date End Date Matt Dia MD [address] [place] [address] PCP - General 01/02/17 documented as of this encounter
--- OUTSIDE RECORDS SUMMARY | 2025-04-14 18:06 | XMS_ITS | Continuity of Care Document ---
Author Organization [facility] Address [address] [place] [address] [address] [place] [address] Phone Care Team Providers Care Sustainable Agriculture Specialist Name Role Phone Nilo Han APODACA Unavailable Unavailable Procedures Procedure Date Progress Note THERAPEUTIC EXERCISES NEUROMUSCULAR RE-ED MANUAL THERAPY FUNC ACTIVITY Carrying, Moving And Handling Objects-Cu rrent Carrying, Moving And Handling Objects-Go al Medications Name Dose Freq Route DOC Jul THERAPEUTIC EXERCISES NEUROMUSCULAR RE-ED MANUAL THERAPY FUNC ACTIVITY HOT/COLD PACK THERAPEUTIC EXERCISES NEUROMUSCULAR RE-ED MANUAL THERAPY FUNC ACTIVITY HOT/COLD PACK Progress Note THERAPEUTIC EXERCISES NEUROMUSCULAR RE-ED MANUAL THERAPY FUNC ACTIVITY HOT/COLD PACK Carrying, Moving And Handling Objects-Cu rrent Carrying, Moving And Handling Objects-Go al Medications Name Dose Freq Route DOC Jun THERAPEUTIC EXERCISES NEUROMUSCULAR RE-ED MANUAL THERAPY FUNC ACTIVITY HOT/COLD PACK THERAPEUTIC EXERCISES NEUROMUSCULAR RE-ED MANUAL THERAPY FUNC ACTIVITY HOT/COLD PACK THERAPEUTIC EXERCISES NEUROMUSCULAR RE-ED MANUAL THERAPY FUNC ACTIVITY HOT/COLD PACK THERAPEUTIC EXERCISES NEUROMUSCULAR RE-ED MANUAL THERAPY HOT/COLD PACK THERAPEUTIC EXERCISES NEUROMUSCULAR RE-ED MANUAL THERAPY FUNC ACTIVITY HOT/COLD PACK PT EVALUATION THERAPEUTIC EXERCISES HOT/COLD PACK Carrying, Moving And Handling Objects-Cu rrent Carrying, Moving And Handling Objects-Go al Medications Name Dose Freq Route DOC May Pain Assess Positive DOC 2015 BMI Above/Below Normal Parameters NO F/U Plan DOC Future Fall Risk Positive 2+ Falls or 1 Fall w/ Injury RA DOC Scre ened for Fall Risk Plan of Care DOC Functional Outcome Assessmen t documented, deficits identified, treatment plan es Advance Directives Directive Yes / No Effective Date File Name No Information Encounters Encounter Description Practice Location Reason(s) For Visit Diagnoses Date Provider Providers Copied on Encounter [facility] [address], [id number], tel:[phone] Walker No Information 9-201 6 Nilo Short. [address], [facility], [place]. tel: [phone] Referring Provider: Matt Dia, [address] [place], [address]. tel:[phone] [place] [address], [id number], tel:[phone] [place] No Information Nov-0 2-201 6 Muehl Han. [address], [facility], . tel: [phone] Referring Provider: Matt Dia, [place], [address]. tel:[phone], [id number], tel:[phone] [place] No Information Oct-2 6-201 6 Muehl Han. [address] [place] [address], [facility], [place], [place], [facility], . tel: [phone] Referring Provider: Matt Dia, [address] [place] [address], [address]. tel:[phone], [id number], tel:[phone] [place] No Information Jun-1 2-201 6 Muehl Han. [address] [place] [address], [address], [place], [facility], . tel: [phone] Referring Provider: Matt Dia, [place], [address]. tel:[phone], [id number], tel:[phone] [place] No Information Jun-1 0-201 6 Muehl Han. [address] [place] [address], [address], [place], [facility], . tel:[phone] Referring Provider: [place], [address]. tel:[phone], [id number], tel:[phone] [place] No Information May-2 6-201 6 Muehl Han. [address] [place] [address], [address], [place], [facility], . tel: [phone] Referring Provider: Matt Dia [address] [place] [address], [id number]. tel:[phone] [facility] [address] [place] [address], [id number], tel:[phone] [place] No Information Sep-2 1- 6 Muehl Han. [address] [place] [address], [place] [address], . tel:[phone] Referring Provider: [place], [address]. tel:[phone] [facility] [address] [place] [address], [id number], tel:[phone] [place] No Information Sep-1 9- 6 Muehl Han. [address] [place] [address], [place] [address], . tel:[phone] Referring Provider: Chivo Chang [place], [place], [facility]. tel:[phone] [place] [address] [place] [address], [id number], tel:[phone] [place] No Information Sep-1 - 6 Muehl Han. [address] [place] [address], [address], [facility], . tel:[phone] Referring Provider: [place], [address]. tel:[phone] [facility] [address], [id number], tel:[phone] [place] Lumbago with sciatica, right sideLumbago with sciatica, left sideSpinal stenosis, lumbar regionUnsteadine ss on feetMuscle weakness (generalized) Sep-1 2-201 6 Muehl Han. [address] [place] [address], [address], [facility], . tel:[phone] Referring Provider: [place], [address]. tel:[phone] Family History Family Member Type Diagnosis Age At Onset No Information Payers Payer name Insurance type Covered green party ID Authoriza tijimi(s) Medicare [place] MB [id number] POC OPEN [id number] [employer] CI [id number] Social History Type Description Quantity Date Captured Comments Sex Female Smoking Status No Information Chief Complaint And Reason For Visit No Information Reason For Referral Reason For Referral No Information History Of Present Illness Encounter Date Complaint History Of Prese nt Illness No Information Functional Status Date Functional Assessmen t No Information Instructions Date Instruction Additional Infor mation No Information Assessments Type Assessment Date No Information Patient Care Teams Name Effective Dates (start - stop) Status Members No Information
--- NOTE | 2025-04-14 18:33 | PC.NURSE ---
patient provided a urine sample, but it dropped on the floor. stated that we need a urine sample and will have to straight cath to get the urine sample, patient continues to state that she does not want to get a catheter for the urine. family at bedside trying to talk her into allowing straight cath for urine sample.
[2025-04-14 19:05] VITALS: BP 100/57; PULSE 75; RESP 18; TEMP 37.5; O2SAT 95
--- NOTE | 2025-04-14 19:20 | PC.NURSE ---
1920-DISCUSSED NEED FOR URINE SPECIMEN WITH PATIENT. PATIENT STATES SHE HAS ONLY HAD ONE GLASS OF WATER AND DOES NOT FEEL NEED TO VOID. PATIENT GIVEN THREE ADDITIONAL GLASSES OF WATER. PATIENT DECLINES TO HAVE STRAIGHT CATH PERFORMED. VISITORS X 2 AT BEDSIDE.
--- NOTE | 2025-04-14 20:23 | PC.NURSE ---
2020-PATIENT UP TO BATHROOM WITH ASSISTANCE OF ONE. PATIENT WALKS WITH SLOW AND STEADY GAIT. URINE SPECIMEN OBTAINED.
[2025-04-14 20:52] LABS: Add Urine Microscopic? YES; Appearance Urine Turbid (Clear); Glucose Urine UA Negative (Negative); Leukocyte Esterase Ur 2+ LEU/UL (Negative); Nitrate Urine Negative (Negative); Specific Grav Ur 1.021 (1.001-1.035)
[2025-04-14] MEDS: cefTRIAXone 1 GM in SODIUM CHLORIDE 0.9% IV 50 ML 100 ML IVPB (21:05)
[2025-04-14 21:15] VITALS: BP 110/68; PULSE 85; RESP 20; TEMP 36.3; O2SAT 96
== END 2025-04-14 22:20 | disposition home or self-care (01) ==
PROVIDERS: Emergency Provider Emergency Medicine; PCP Internal Medicine
DX: S19.9XXA Unspecified injury of neck, initial encounter (principal); N39.0 Urinary tract infection, site not specified; W18.30XA Fall on same level, unspecified, initial encounter; Y93.H2 Activity, gardening and landscaping
CPT/HCPCS: 36415; 70450; 70486; 71045; 72125; 80053; 81001; 82550; 83605; 83690; 85025; 85610; 85730; 87086; 96365; 99284; A9270; J0696